=== PATIENT | female | born 1990 | race Caucasian/White ===

== ENCOUNTER 2017-11-24 15:13 | Emergency (ER) | payer SELFPAY, OTHER ==
[2017-11-24] MEDS ORDERED: Sulfameth/Trimethoprim DS 800-160mg TAB ONE (15:58)
== END 2017-11-24 16:04 | disposition home or self-care (01) ==
LOC: BURERS 15:13
DX: L02.415 Cutaneous abscess of right lower limb (principal)
CPT/HCPCS: 10060; 87070; 87077; 87186; 87205